=== PATIENT | female | born 1975 | race Caucasian/White ===

== ENCOUNTER 2017-12-25 08:24 | Emergency (ER) | payer MEDICARE, MEDICAID ==
[2017-12-25 08:43] VITALS: BP 103/73
--- NOTE | 2017-12-25 08:48 | UC ---
Respiratory Complaint HPI - HPI Summary HPI Summary: The patient is a 42-year-old female that presents here with a five-day history of cough and chest tightness. She has had a history of pneumonia in the past. . She is a nonsmoker. She has had to use inhalers in the past. She has felt feverish and had chills. She has had muscle aches. She feels slightly short of breath. He denies any chest pain. - History of Current Complaint Chief Complaint: UCGeneralIllness Stated Complaint: COUGH,FEVER Time Seen by Provider: 12/25/17 08:43 Hx Obtained From: Patient Hx Last Menstrual Period: 11/26/17 Onset/Duration: Gradual Onset, Lasting Days Timing: Constant Severity Initially: Mild Severity Currently: Moderate Pain Intensity: 6 Pain Scale Used: 0-10 Numeric Character: Cough: Productive - at times Aggravating Factors: Nothing Alleviating Factors: Nothing Associated Signs And Symptoms: Positive: Fever, Chills, Wheezing - Allergies/Home Medications Allergies/Adverse Reactions: Allergies Allergy/AdvReac Type Severity Reaction Status Date / Time No Known Allergies Allergy Verified 12/25/17 08:38 Home Medications: Home Medications "Ulcer Med" 1 tab PO DAILY 12/25/17 [History] Acetaminophen [Tylenol Extra Strength] 1,000 mg PO ONCE 12/25/17 [History Confirmed 12/25/17] PMH/Surg Hx/FS Hx/Imm Hx Previously Healthy: Yes Respiratory History: Bronchitis, Pneumonia - Surgical History Surgical History: Yes Surgery Procedure, Year, and Place: L5 S1 Fusion, [address], [facility]. tubal ligation. surgery 2x right femur - rods and screws. knee surgery w/ screws. coloscopy with biopsy 12/09 - Family History Known Family History: Positive: None, Unknown Negative: Respiratory Disease - Social History Alcohol Use: None Substance Use Type: None Smoking Status (MU): Never Smoked Tobacco - Immunization History Most Recent Tetanus Shot: 3 YEARS AGO Review of Systems Constitutional: Fever, Chills, Fatigue Skin: Negative Eyes: Negative ENT: Negative Respiratory: Shortness Of Breath - mild, Cough Cardiovascular: Negative Gastrointestinal: Negative Genitourinary: Negative Motor: Negative Neurovascular: Negative Musculoskeletal: Negative Neurological: Negative Psychological: Negative Is Patient Immunocompromised?: No All Other Systems Reviewed And Are Negative: Yes Physical Exam Triage Information Reviewed: Yes Appearance: Well-Appearing, No Pain Distress, Well-Nourished Vital Signs: Initial Vital Signs Temp 98.5 F 12/25/17 08:36 Pulse 79 12/25/17 08:36 Resp 18 12/25/17 08:36 BP 103/73 12/25/17 08:36 Pulse Ox 100 12/25/17 08:36 Vital Signs Reviewed: Yes Eyes: Positive: Conjunctiva Clear ENT: Positive: Hearing grossly normal, Uvula midline. Negative: Pharyngeal erythema, Nasal congestion, Nasal drainage, Tonsillar swelling, Tonsillar exudate, Trismus, Muffled voice, Hoarse voice, Sinus tenderness Dental: Positive: Other: - edentulous Neck: Positive: Supple, Nontender Respiratory: Positive: No respiratory distress, No accessory muscle use, Wheezing Cardiovascular: Positive: RRR, No Murmur Musculoskeletal: Positive: ROM Intact, No Edema Neurological: Positive: Alert Psychological Exam: Normal Skin Exam: Normal UC Diagnostic Evaluation - Laboratory O2 Sat by Pulse Oximetry: 100 - normal/not hypoxic Re-Evaluation - Re-Evaluation First Eval Re-Evaluation Time: 09:22 Change: Improved - subjectively better/lungs CTA Respiratory Course/Dx - Differential Dx/Diagnosis Provider Diagnoses: acute bronchitis with bronchospasm Discharge - Sign-Out/Discharge Documenting (check all that apply): Patient Departure All imaging exams completed and their final reports reviewed: No Studies - Discharge Plan Condition: Stable Disposition: HOME Prescriptions: Amoxicillin PO (*) [Amoxicillin 875 MG (*)] 875 mg PO BID #14 tab predniSONE [Deltasone 20 MG TAB] 40 mg PO DAILY #10 tab Patient Education Materials: Acute Bronchitis (ED) Referrals: Evette Mays MD [Primary Care Provider] - 4 Days (if not better) Additional Instructions: use inhaler as instructed recheck for new or worsening symptoms rest fluids - Billing Disposition and Condition Condition: STABLE Disposition: Home
[2017-12-25] MEDS: Albuterol 2.5 MG/3 ML NEB.SOL* (0.083%) INH ONE (08:57)
[2017-12-25] MEDS: Ipratropium 0.5MG/2.5ML NEB* 0.5 MG/2.5 ML NEB.SOLN INH ONE (08:57)
[2017-12-25] MEDS: Albuterol HFA INHALER* 8 gm MDI INH ONE (09:33)
== END 2017-12-25 09:37 | disposition home or self-care (01) ==
LOC: UCCORT 08:24
DX: J20.9 Acute bronchitis, unspecified (principal)
CPT/HCPCS: 99213; A9270-GY; G0463

== ENCOUNTER 2018-04-02 08:24 | Emergency (ER) | payer MEDICARE, MEDICAID ==
[2018-04-02 08:38] VITALS: BP 95/69
--- NOTE | 2018-04-02 09:14 | ED ---
Throat Pain/Nasal Congestion - HPI Summary HPI Summary: 42 yr old female with the complaint of runny nose, sore throat, cough, sinus congestion. She has been ill for one week. She denies SOB. She denies smoking. She feels she has not gotten any better over the past week. She is concerned for strep throat as well. Symptoms are moderate. - History of Current Complaint Chief Complaint: UCGeneralIllness Time Seen by Provider: 04/02/18 08:57 - Allergies/Home Medications Allergies/Adverse Reactions: Allergies Allergy/AdvReac Type Severity Reaction Status Date / Time No Known Allergies Allergy Verified 12/25/17 08:38 PMH/Surg Hx/FS Hx/Imm Hx Endocrine/Hematology History: Denies: Hx Diabetes, Hx Thyroid Disease Cardiovascular History: Denies: Hx Hypertension Respiratory History: Denies: Hx Asthma, Hx Chronic Obstructive Pulmonary Disease (COPD) GI History: Reports: Hx Ulcer - Surgical History Surgery Procedure, Year, and Place: L5 S1 Fusion, 1995, . tubal ligation. surgery 2x right femur - rods and screws. knee surgery w/ screws. coloscopy with biopsy 12/09. LAPAROTOMY Infectious Disease History: No Infectious Disease History: Denies: Hx Clostridium Difficile, Hx Hepatitis, Hx Human Immunodeficiency Virus (HIV), Hx of Known/Suspected MRSA, Hx Shingles, Hx Tuberculosis, Hx Known/ Suspected VRE, Hx Known/Suspected VRSA, History Other Infectious Disease, Traveled Outside the [place] in Last 30 Days - Family History Known Family History: Positive: None, Unknown Negative: Respiratory Disease - Social History Occupation: Employed Full-time Alcohol Use: None Substance Use Type: Reports: None Smoking Status (MU): Never Smoked Tobacco Review of Systems Constitutional: Negative Positive: Sore Throat, Nasal Discharge Positive: Cough All Other Systems Reviewed And Are Negative: Yes Physical Exam Triage Information Reviewed: Yes Vital Signs On Initial Exam: Initial Vitals Temp Pulse Resp BP Pulse Ox 98.2 F 59 19 95/69 100 04/02/18 08:34 04/02/18 08:34 04/02/18 08:34 04/02/18 08:34 04/02/18 08:34 Vital Signs Reviewed: Yes Appearance: Positive: Well-Appearing, No Pain Distress Skin: Positive: Warm, Skin Color Reflects Adequate Perfusion Head/Face: Positive: Normal Head/Face Inspection Eyes: Positive: EOMI ENT: Positive: Pharyngeal erythema, Nasal congestion, Nasal drainage, TMs normal , Sinus tenderness Neck: Positive: Nontender Respiratory/Lung Sounds: Positive: Clear to Auscultation, Breath Sounds Present Cardiovascular: Positive: RRR. Negative: Murmur Abdomen Description: Negative: Distended Musculoskeletal: Positive: Strength/ROM Intact Neurological: Positive: Sensory/Motor Intact, Alert, Oriented to Person Place, Time, CN Intact II-III Psychiatric: Positive: Normal Diagnostics - Vital Signs Vital Signs Temp Pulse Resp BP Pulse Ox 04/02/18 08:34 98.2 F 59 19 95/69 100 - Laboratory Lab Results: Lab Results 04/02/18 Range/Units 09:01 Group A Strep Rapid Negative (Negative) Lab Statement: Any lab studies that have been ordered have been reviewed, and results considered in the medical decision making process. EENT Course/Dx - Course Course Of Treatment: 42 yr old with sinus infection, rapid strep neg. Rx with Biaxin. - Diagnoses Provider Diagnoses: Sinusitis Discharge - Sign-Out/Discharge Documenting (check all that apply): Patient Departure All imaging exams completed and their final reports reviewed: No Studies - Discharge Plan Condition: Good Disposition: HOME Prescriptions: Clarithromycin TAB* [Biaxin 500 MG TAB*] 500 mg PO BID #20 tab Patient Education Materials: Sinusitis (ED) Referrals: Evette Mays MD [Primary Care Provider] - 2 Days - Billing Disposition and Condition Condition: GOOD Disposition: Home
== END 2018-04-02 09:19 | disposition home or self-care (01) ==
LOC: UCCORT 08:24
DX: J32.9 Chronic sinusitis, unspecified (principal)
CPT/HCPCS: 87651; 99212; G0463

== ENCOUNTER 2019-01-01 09:24 | Emergency (ER) | payer MEDICAID, MEDICARE ==
[2019-01-01 09:49] VITALS: BP 90/60
[2019-01-01 09:58] LABS: Influenza A Molecular NEGATIVE (Negative); Influenza B Molecular NEGATIVE (Negative)
[2019-01-01] MEDS ORDERED: Acetaminophen TAB* 325 MG PO ONE (10:11)
--- NOTE | 2019-01-01 10:14 | UC ---
FLU HPI - HPI Summary HPI Summary: Patient is a 43yo female presenting with flu-like symptoms x1 week that she states are worsening. Notes 3 episodes of vomiting this morning at 4am. Notes subjective fevers for which she has been taking tylenol. Notes extreme body aches. Notes sore throat. Notes dry cough that started this morning. Notes SOB and chest tightness. Notes nausea. Notes diarrhea but that it is normal for her. Notes abdominal soreness from coughing and throwing up. Notes headache and sensitivity to light. Patient states she has had decreased appetite the last week. - History of Current Complaint Chief Complaint: UCGeneralIllness Stated Complaint: VOMITING Hx Obtained From: Patient Hx Last Menstrual Period: 03/27/17 Onset/Duration: Gradual Onset, Lasting Days Severity Initially: Severe Pain Intensity: 8 Pain Scale Used: 0-10 Numeric - Allergy/Home Medications Allergies/Adverse Reactions: Allergies Allergy/AdvReac Type Severity Reaction Status Date / Time No Known Allergies Allergy Verified 01/01/19 09:49 Home Medications: Home Medications NK [No Home Medications Reported] 01/01/19 [History Confirmed 01/01/19] PMH/Surg Hx/FS Hx/Imm Hx Previously Healthy: Yes - Surgical History Surgical History: Yes Surgery Procedure, Year, and Place: L5 S1 Fusion, 1995, [facility]. tubal ligation. surgery 2x right femur - rods and screws. knee surgery w/ screws. coloscopy with biopsy 12/09. LAPAROTOMY - Family History Known Family History: Positive: None, Unknown Negative: Respiratory Disease - Social History Alcohol Use: None Substance Use Type: None Smoking Status (MU): Never Smoked Tobacco - Immunization History Most Recent Tetanus Shot: 3 YEARS AGO Review of Systems All Other Systems Reviewed And Are Negative: Yes Constitutional: Positive: Fever, Chills, Fatigue Skin: Positive: Negative Eyes: Positive: Photophobia ENT: Positive: Sore Throat, Ear Ache, Nasal Discharge, Sinus Congestion. Negative: Sinus Pain/Tenderness Respiratory: Positive: Shortness Of Breath, Cough Cardiovascular: Positive: Negative Gastrointestinal: Positive: Abdominal Pain, Vomiting, Diarrhea, Nausea Genitourinary: Positive: Negative Motor: Positive: Weakness Musculoskeletal: Positive: Arthralgia, Myalgia Neurological: Positive: Headache Physical Exam Triage Information Reviewed: Yes Appearance: Well-Nourished, Ill-Appearing, Pain Distress, Other: - Patient curled in a ball under blankets on the exam table. Vital Signs: Initial Vital Signs Temp 99.1 F 01/01/19 09:47 Pulse 75 01/01/19 09:47 Resp 18 01/01/19 09:47 BP 90/60 01/01/19 09:47 Pulse Ox 99 01/01/19 09:47 Lab Results 01/01/19 Range/Units 09:45 Influenza A (Rapid) Negative (Negative) Influenza B (Rapid) Negative (Negative) Vital Signs Reviewed: Yes Eyes: Positive: Conjunctiva Clear ENT: Positive: Hearing grossly normal, Pharyngeal erythema, Nasal drainage, TMs normal, Uvula midline. Negative: TM bulging, TM dull, TM red, Tonsillar swelling, Tonsillar exudate Neck exam: Normal Neck: Positive: Supple, Nontender, No Lymphadenopathy Respiratory Exam: Normal Respiratory: Positive: Lungs clear, Normal breath sounds, No respiratory distress, No accessory muscle use. Negative: Crackles, Rhonchi, Stridor, Wheezing Cardiovascular Exam: Normal Cardiovascular: Positive: RRR. Negative: Tachycardia Neurological: Positive: Alert, Muscle Tone Normal Psychological: Positive: Inconsolable Skin Exam: Normal Flu Course/Dx - Course Course Of Treatment: Patient's rapid flu was negative. The patient is visibly in pain, curled in a ball, avoiding light, and unwilling to allow a proper examination. When given tylenol, she immediately threw up. Patient states she normally has low BP, and that 90/60 is actually high for her. Patient discussed with Dr. Hart and agreed that she needs to be seen in the ED. Patient voiced understanding and agreed to allow her significant other to transport her to the ED. - Differential Dx/Diagnosis Provider Diagnosis: Flu-like symptoms Discharge ED - Sign-Out/Discharge Documenting (check all that apply): Patient Departure All imaging exams completed and their final reports reviewed: No Studies - Discharge Plan Condition: Stable Disposition: HOME-RECOMMEND TO ED Referrals: Evette Mays MD [Primary Care Provider] - If Needed Additional Instructions: It is strongly advised that you go straight to the Emergency Room. - Billing Disposition and Condition Condition: STABLE Disposition: Home-Recommend to ED
== END 2019-01-01 10:26 | disposition home health service (06) ==
LOC: UCEAST 09:24
DX: R11.10 Vomiting, unspecified (principal); R50.9 Fever, unspecified; R52 Pain, unspecified; J02.9 Acute pharyngitis, unspecified; R05 Cough; R19.8 Other specified symptoms and signs involving the digestive system and abdomen
CPT/HCPCS: 99212; A9270-GY; G0463